=== PATIENT | male | born 1960 | race Caucasian/White ===

== ENCOUNTER 2017-10-30 13:38 | Day surgery (SDC) | payer OTHER ==
[2017-10-30] VITALS (10 sets, daily range): BP systolic 120–132; BP diastolic 70–89
[~2017-10-30] VITALS: Ht 180.3 cm; Wt 104.0 kg
[2017-10-30] MEDS ORDERED: ringers solution, lacted 1,000 ML IV SCH ×2 (13:58→16:47)
[2017-10-30] MEDS ORDERED: acetaminophen 325mg tablet PO ONE (13:58)
[2017-10-30] MEDS ORDERED: famotidine 20mg tablet PO ONE (14:00)
[2017-10-30 15:42] LABS: BASOPHILS % (AUTO) 0.4 % (0-1); EOSINOPHILS # (AUTO) 0.4 X10'3 (0-0.9); EOSINOPHILS % (AUTO) 4.9 % (0-6); HEMATOCRIT 42.4 % (42.0-52.0); HEMOGLOBIN 13.9 g/dl (14.0-17.9); LYMPHOCYTES # (AUTO) 1.8 X10'3 (1.1-4.8); LYMPHOCYTES % (AUTO) 19.9 % (21-51); MEAN CORPUSCULAR HEMOGLOBIN 28.7 PG (27.0-31.0); MEAN CORPUSCULAR HGB CONC 32.7 % (33.0-36.5); MEAN CORPUSCULAR VOLUME 87.8 FL (78-98); MEAN PLATELET VOLUME 8.9 FL (7.4-10.4); MONOCYTES # (AUTO) 0.6 X10'3 (0-0.9); MONOCYTES % (AUTO) 6.9 % (2-12); NEUTROPHILS % (AUTO) 67.9 % (42-75); PLATELET COUNT 202 X10'3 (140-440); RED BLOOD COUNT 4.83 X10'6 (4.70-6.10); RED CELL DISTRIBUTION WIDTH 13.2 % (11.5-14.5); WHITE BLOOD COUNT 8.9 X10'3 (4.5-11.0)
[2017-10-30 16:03] LABS: ALANINE AMINOTRANSFERASE 34 U/L (12-78); ALBUMIN 3.7 G/DL (3.4-5.0); ALBUMIN/GLOBULIN RATIO 1.1 (1.1-1.5); ALKALINE PHOSPHATASE 80 IU/L (46-116); ANION GAP 3 (8-16); ASPARTATE AMINO TRANSFERASE 18 U/L (10-37); BILIRUBIN,TOTAL 0.5 MG/DL (0.1-1.0); BLOOD UREA NITROGEN 14 MG/DL (7-18); BUN/CREATININE RATIO 17.5 (5.4-32.0); CALCIUM 9.2 MG/DL (8.5-10.1); CHLORIDE 105 MMOL/L (99-107); GLUCOSE 102 MG/DL (70-104); POTASSIUM 4.3 MMOL/L (3.5-5.1); SODIUM 140 MMOL/L (135-145); TOTAL CARBON DIOXIDE 31.9 MMOL/L (24-32); eGFR > 90 ML/MIN
[2017-10-30] MEDS ORDERED: ondansetron/PF 4mg/2ml inj ONE (16:12)
[2017-10-30] MEDS ORDERED: sevoflurane 250ml liquid IH ONE (16:12)
[2017-10-30] MEDS ORDERED: dexamethasone sod phosphate 4mg/ml inj. ONE (16:12)
[2017-10-30] MEDS ORDERED: ROPIVAcaine 0.5% (5mg/ml) 30ml vial ONE (16:13)
[2017-10-30] MEDS ORDERED: ketorolac trometh. 30mg/ml inj. ONE (16:19)
[2017-10-30] MEDS ORDERED: propofol inj 20 ML IV ONE (16:19)
[2017-10-30] MEDS ORDERED: LIDOcaine 2% (20mg/ml) 5ml vial ONE (16:19)
[2017-10-30] MEDS ORDERED: ondansetron/PF 4mg/2ml inj IV PRN (16:50)
[2017-10-30] MEDS ORDERED: labetalol 5mg/ml 20ml inj. IV PRN (16:50)
[2017-10-30] MEDS ORDERED: meperidine/PF 25mg/ml syringe IV PRN ×2 (16:50)
[2017-10-30] MEDS ORDERED: hydrALAZINE 20mg/ml inj. IV PRN (16:50)
[2017-10-30] MEDS ORDERED: HYDROcodone/acetaminophen 5mg/325mg tablet PO ONE (17:45)
== END 2017-10-30 18:10 | disposition home or self-care (01) ==
LOC: PAS 13:38
PROVIDERS: ATTEND Orthopaedic Surgery
DX: M24.661 Ankylosis, right knee (principal); Z96.651 Presence of right artificial knee joint; Z88.0 Allergy status to penicillin
CPT/HCPCS: 27570; 36415; 80053; 82948; 85025; 93005; J1100; J1885; J2001; J2175; J2270; J2405; J2704; J2795; J7120

== ENCOUNTER 2019-08-25 05:28 | Inpatient (IN) | payer OTHER ==
[2019-08-18 15:15] LABS: BASOPHILS % (AUTO) 0.6 % (0-1); EOSINOPHILS # (AUTO) 0.4 X10'3 (0-0.9); LYMPHOCYTES # (AUTO) 1.8 X10'3 (1.1-4.8); LYMPHOCYTES % (AUTO) 23.6 % (21-51); MEAN CORPUSCULAR HEMOGLOBIN 29.8 PG (27.0-31.0); MEAN CORPUSCULAR HGB CONC 33.3 g/dL (33.0-36.5); MEAN CORPUSCULAR VOLUME 89.4 FL (78-98); MEAN PLATELET VOLUME 9.2 FL (7.4-10.4); MONOCYTES # (AUTO) 0.6 X10'3 (0-0.9); MONOCYTES % (AUTO) 7.5 % (2-12); NEUTROPHILS # (AUTO) 4.9 X10'3 (1.8-7.7); NEUTROPHILS % (AUTO) 63.3 % (42-75); PRE OP HEMATOCRIT 44.7 % (42.0-52.0); PRE OP HEMOGLOBIN 14.9 g/dL (14.0-17.9); PRE OP PLATELET COUNT 186 X10'3 (140-440); RED CELL DISTRIBUTION WIDTH 13.2 % (11.5-14.5)
[2019-08-18 15:26] LABS: HEMOGLOBIN A1C 6.4 % (4.5-6.2)
[2019-08-18 15:28] LABS: PRE OP PROTIME 10.3 SECONDS (9.0-12.0)
[2019-08-18 15:33] LABS: ALBUMIN 3.9 G/DL (3.4-5.0); ALBUMIN/GLOBULIN RATIO 1.1 (1.1-1.5); ALKALINE PHOSPHATASE 64 IU/L (46-116); BLOOD UREA NITROGEN 17 MG/DL (7-18); BUN/CREATININE RATIO 18.1 (5.4-32.0); CALCIUM 8.9 MG/DL (8.5-10.1); CHLORIDE 106 MMOL/L (99-107); CREATININE 0.94 MG/DL (0.60-1.10); PRE OP ALT 40 U/L (30-65); PRE OP ANION GAP 7 (8-16); PRE OP AST 21 U/L (10-37); PRE OP BILIRUB, TOTAL 0.4 MG/DL (0.0-1.0); PRE OP GLUCOSE 98 MG/DL (70-104); PRE OP POTASSIUM 4.2 MMOL/L (3.4-5.1); PRE OP SODIUM 143 MMOL/L (135-145); TOTAL CARBON DIOXIDE 30.3 MMOL/L (24-32); TOTAL PROTEIN 7.3 G/DL (6.4-8.2); eGFR 83 ML/MIN
[~2019-08-25] VITALS: Ht 180.3 cm; Wt 104.3 kg
[2019-08-25] VITALS (18 sets, daily range): BP systolic 11–123; BP diastolic 50–87
[~2019-08-25 05:28] MED LIST: METF500T PO
[2019-08-25] MEDS ORDERED: clindamycin-Cleocin 900mg/D5W 50 ML IV ONE (05:30)
[2019-08-25] MEDS ORDERED: famotidine 20mg tablet PO ONE (05:30)
[2019-08-25] MEDS ORDERED: tranexamic acid inj. 1,000 MG in normal saline 100 ML IV ONE (05:30)
[2019-08-25] MEDS ORDERED: metoclopramide 5 mg/ml inj IV ONE (05:30)
[2019-08-25] MEDS ORDERED: celeCOXIB 100mg capsule PO ONE (05:30)
[2019-08-25] MEDS ORDERED: acetaminophen 325mg tablet PO ONE (05:30)
[2019-08-25] MEDS ORDERED: ringers solution, lacted 1,000 ML IV ONE (05:30)
[2019-08-25] MEDS ORDERED: gabapentin 300mg capsule PO ONE (05:30)
[2019-08-25] MEDS ORDERED: oxyCODONE SR 10mg (sust. release) tab -2 tabs (20mg) PO ONE (05:30)
[2019-08-25] MEDS ORDERED: vancomycin inj 1,500 MG in normal saline 300ml IV soln IV ONE (05:30)
[2019-08-25] MEDS ORDERED: LIDOcaine 1% (10mg/ml) 2ml vial ONE (06:01)
[2019-08-25] MEDS ORDERED: HYDROmorphone inj. 0.5 MG/0.5 ML DISP.SYRIN IV PRN (06:35)
[2019-08-25] MEDS ORDERED: acetaminophen 325mg tablet PO PRN (06:35)
[2019-08-25] MEDS ORDERED: dextrose 50%-water 50ml dispensing syringe IV PRN ×2 (06:35)
[2019-08-25] MEDS ORDERED: glucagon, human recombinant 1mg kit SUBCUT PRN (06:35)
[2019-08-25] MEDS ORDERED: HYDROmorphone 1 mg/ml syringe IV PRN (06:35)
[2019-08-25] MEDS ORDERED: diphenhydrAMINE 25mg capsule PO PRN ×2 (06:35)
[2019-08-25] MEDS ORDERED: ondansetron/PF 4mg/2ml inj IV PRN ×2 (06:35→09:35)
[2019-08-25] MEDS ORDERED: magnesium hydroxide 30ml (MOM) UD suspension PO PRN (06:35)
[2019-08-25] MEDS ORDERED: oxyCODONE/APAP 10/325mg tablet PO PRN ×2 (06:35)
[2019-08-25] MEDS ORDERED: bisacodyl 10mg suppository rectal RC PRN (06:35)
[2019-08-25] MEDS ORDERED: dextrose ORAL solution 15 GM/59 ML bottle PO PRN ×2 (06:35)
[2019-08-25] MEDS ORDERED: MESSAGE TO PHARMACY PO ONE (06:35)
[2019-08-25] MEDS ORDERED: ROPIVAcaine 0.5% (5mg/ml) 30ml vial ONE ×2 (06:53→09:57)
[2019-08-25] MEDS ORDERED: ketorolac trometh. 30mg/ml inj. ONE (06:53)
[2019-08-25] MEDS ORDERED: cloNIDine hcl/PF 100mcg/ml inj ONE (06:54)
[2019-08-25] MEDS ORDERED: epiNEPHrine 1 mg/ml inj ONE ×2 (06:54→06:55)
[2019-08-25] MEDS ORDERED: vancomycin 1,000mg inj ONE (06:54)
[2019-08-25] MEDS ORDERED: tetracaine 1% (10mg/ml) pres. free inj. ONE (08:21)
[2019-08-25] MEDS ORDERED: MIDAZolam 1mg/ml 10ml vial ONE (08:23)
[2019-08-25] MEDS ORDERED: fentaNYL/PF 50MCG/1 ML 2ML syringe ONE (08:24)
[2019-08-25] MEDS: aspirin 325mg tablet PO SCH (08:30)
[2019-08-25] MEDS ORDERED: ringers solution, lacted 1,000 ML IV SCH (09:32)
[2019-08-25] MEDS ORDERED: morphine 4 MG/ML inj SYRINge IV PRN ×2 (09:35)
[2019-08-25] MEDS ORDERED: proCHLORperazine 10 MG/2 ml inj IV PRN (09:35)
[2019-08-25] MEDS ORDERED: meperidine/PF 25mg/ml syringe IV PRN ×3 (09:35)
--- NOTE | 2019-08-25 10:40 | NUR ---
Received from OR via BED , accompanied by Anesthesiologist DR LIN and report given by Anesthesiolgist. PATIENT WAKING UP, DENIES PAIN, V/S WNL, NEUROVASCULAR CHECKS INTACT, 18G PIV RUE , GERBER DRESSING TO LEFT KNEE CDI W/ COLD POWDER PACK AND IMMOBILIZER BRACE W/ SCD ON AND ON QUE PUMP TO LEFT KNEE. F/C DRAINING CLEAR YELLOW URINE. SENSATION T-10.
[2019-08-25] MEDS: ROPIVAcaine 0.2%/PF PAIN PUMP 550 ML ADDCANAL SCH ×2 (11:15→20:30)
--- NOTE | 2019-08-25 11:40 | NUR ---
PATIENT WAKING UP, DENIES PAIN, V/S WNL, NEUROVASCULAR CHECKS INTACT, 18G PIV RUE , GERBER DRESSING TO LEFT KNEE CDI W/ COLD POWDER PACK AND IMMOBILIZER BRACE W/ SCD ON AND ON QUE PUMP TO LEFT KNEE. F/C DRAINING CLEAR YELLOW URINE. SENSATION T-10. . PATIENT TAKEN TO WITH ALL BELONGINGS AND HOOKED UP TO MONITORS IN ROOM AND REPORT GIVEN TO CAMPUS MANAGER WHO HAS TAKEN OVER PATIENT CARE.
[2019-08-25] MEDS: ascorbic acid 500mg tablet PO SCH ×2 (12:26→20:40)
[2019-08-25] MEDS: gabapentin 300mg capsule PO SCH ×3 (12:26→20:40)
[2019-08-25] MEDS: multivitamins, therapeutics tablet PO SCH (12:26)
[2019-08-25] MEDS: potassium cl 20mEq in 1/2 NS 1,000 ML IV SCH ×2 (12:30→16:06)
[2019-08-25] MEDS ORDERED: tranexamic acid inj. 1,000 MG in normal saline 100ml IV soln 100 ML IV ONE (15:30)
[2019-08-25] MEDS: cefazolin/dext.iso 2gm/50ml 50 ML IV SCH ×2 (16:06→23:47)
--- NOTE | 2019-08-25 18:14 | NUR ---
Patient in room [facility]TH[facility] 4024. I have received report from ARAVIND RICKS and had the opportunity to ask questions and assume patient care.
--- NOTE | 2019-08-25 20:30 | NUR ---
DECREASED ON Q PUMP FROM 12CC/HR TO 10CC/HR
[2019-08-25] MEDS: sennosides 8.6mg tablet PO SCH (20:41)
--- NOTE | 2019-08-25 22:13 | NUR ---
LEFT A TELEPHONE MESSAGE AT TO CLARIFY CPM ORDER.
[2019-08-26 02:00] VITALS: BP 100/62
[2019-08-26] MEDS: potassium cl 20mEq in 1/2 NS 1,000 ML IV SCH ×4 (02:20→22:32)
[2019-08-26] MEDS: ROPIVAcaine 0.2%/PF PAIN PUMP 550 ML ADDCANAL SCH (03:35)
[2019-08-26] MEDS ORDERED: HYDROcodone/acetaminophen 10/325mg tab PO PRN (05:20)
[2019-08-26] MEDS: HYDROcodone/acetaminophen 10/325mg tab PO PRN ×3 (05:30→15:15)
--- NOTE | 2019-08-26 06:07 | NUR ---
Problems reprioritized. Patient report given, questions answered & plan of care reviewed with ARAVIND GOODMAN.
[2019-08-26 06:08] LABS: ANION GAP 5 (8-16); CHLORIDE 106 MMOL/L (99-107); POTASSIUM 4.4 MMOL/L (3.5-5.1); SODIUM 139 MMOL/L (135-145); TOTAL CARBON DIOXIDE 28.3 MMOL/L (24-32)
[2019-08-26 06:24] VITALS: BP 111/43
--- NOTE | 2019-08-26 06:28 | NUR ---
Problems reprioritized. Patient report given, questions answered & plan of care reviewed with ARAVIND VIEYRA.
--- NOTE | 2019-08-26 06:35 | NUR ---
Patient in room [facility]TH[facility] 4024. I have received report from Caity NAZARIO and had the opportunity to ask questions and assume patient care.
[2019-08-26 06:48] LABS: BASOPHILS % (AUTO) 0.4 % (0-1); EOSINOPHILS # (AUTO) 0.4 X10'3 (0-0.9); EOSINOPHILS % (AUTO) 3.7 % (0-6); HEMATOCRIT 38.8 % (42.0-52.0); HEMOGLOBIN 12.9 g/dl (14.0-17.9); LYMPHOCYTES # (AUTO) 2.1 X10'3 (1.1-4.8); LYMPHOCYTES % (AUTO) 21.3 % (21-51); MEAN CORPUSCULAR HEMOGLOBIN 29.8 PG (27.0-31.0); MEAN CORPUSCULAR HGB CONC 33.4 g/dL (33.0-36.5); MEAN CORPUSCULAR VOLUME 89.2 FL (78-98); MEAN PLATELET VOLUME 9.4 FL (7.4-10.4); MONOCYTES # (AUTO) 0.8 X10'3 (0-0.9); MONOCYTES % (AUTO) 8.7 % (2-12); NEUTROPHILS # (AUTO) 6.4 X10'3 (1.8-7.7); NEUTROPHILS % (AUTO) 65.9 % (42-75); PLATELET COUNT 173 X10'3 (140-440); RED BLOOD COUNT 4.35 X10'6 (4.70-6.10); RED CELL DISTRIBUTION WIDTH 13.1 % (11.5-14.5); WHITE BLOOD COUNT 9.7 X10'3 (4.5-11.0)
[2019-08-26] MEDS ORDERED: scopolamine 1.5mg patch.TD72 TD SCH (07:30)
[2019-08-26] MEDS: ascorbic acid 500mg tablet PO SCH ×2 (08:23→20:38)
[2019-08-26] MEDS: multivitamins, therapeutics tablet PO SCH (08:23)
[2019-08-26] MEDS: aspirin 325mg tablet PO SCH (08:23)
[2019-08-26] MEDS: gabapentin 300mg capsule PO SCH ×3 (08:23→20:38)
[2019-08-26] MEDS: insulin Lispro (HumaLOG) vial - multi-dose SQ SCH ×3 (08:27→18:43)
[2019-08-26 10:00] VITALS: BP 113/37
[2019-08-26 14:00] VITALS: BP 111/68
--- NOTE | 2019-08-26 16:13 | NUR ---
Joint replacement: Pt s/p left knee arthroplasty seen at bedside provided with written and verbal protein education and RD contact information. Pt endorses a good appetite and reports he ate about 50% at lunch today d/t not liking the food. Pt agrees to peanut butter with celery at dinner tonight and lunch tomorrow and requests no turkey or chicken, d/w dietary. Pt denies any food allergies or difficulty chewing/swallowing. Pt reports no BM since 08/24 however denies any nutrition intervention at this time. Will continue to follow. Addendum: 08/26/19 at [address] Amended: Links added.
[2019-08-26 18:00] VITALS: BP 102/61
--- NOTE | 2019-08-26 18:04 | NUR ---
Patient report given to Kellen Bustillo RN
[2019-08-26] MEDS: sennosides 8.6mg tablet PO SCH (20:38)
[2019-08-26] MEDS: celeCOXIB 100mg capsule PO SCH (20:38)
[2019-08-26 22:00] VITALS: BP 114/62
[2019-08-27 05:55] LABS: BASOPHILS % (AUTO) 0.2 % (0-1); EOSINOPHILS # (AUTO) 0.3 X10'3 (0-0.9); EOSINOPHILS % (AUTO) 2.7 % (0-6); HEMATOCRIT 38.2 % (42.0-52.0); HEMOGLOBIN 12.9 g/dl (14.0-17.9); LYMPHOCYTES # (AUTO) 1.2 X10'3 (1.1-4.8); LYMPHOCYTES % (AUTO) 12.3 % (21-51); MEAN CORPUSCULAR HEMOGLOBIN 30.1 PG (27.0-31.0); MEAN CORPUSCULAR HGB CONC 33.7 g/dL (33.0-36.5); MEAN CORPUSCULAR VOLUME 89.2 FL (78-98); MEAN PLATELET VOLUME 9.1 FL (7.4-10.4); MONOCYTES # (AUTO) 0.9 X10'3 (0-0.9); MONOCYTES % (AUTO) 9.5 % (2-12); NEUTROPHILS # (AUTO) 7.3 X10'3 (1.8-7.7); NEUTROPHILS % (AUTO) 75.3 % (42-75); PLATELET COUNT 156 X10'3 (140-440); RED BLOOD COUNT 4.28 X10'6 (4.70-6.10); RED CELL DISTRIBUTION WIDTH 13.3 % (11.5-14.5); WHITE BLOOD COUNT 9.8 X10'3 (4.5-11.0)
[2019-08-27 06:00] VITALS: BP 130/74
--- NOTE | 2019-08-27 06:21 | NUR ---
Report given to Scooter NAZARIO.
--- NOTE | 2019-08-27 06:28 | NUR ---
Patient in room [facility]TH[facility] 4024. I have received report from Kellen NAZARIO and had the opportunity to ask questions and assume patient care.
[2019-08-27] MEDS: celeCOXIB 100mg capsule PO SCH (07:47)
[2019-08-27] MEDS: multivitamins, therapeutics tablet PO SCH (07:48)
[2019-08-27] MEDS: gabapentin 300mg capsule PO SCH (07:48)
[2019-08-27] MEDS: ascorbic acid 500mg tablet PO SCH (07:48)
[2019-08-27] MEDS: aspirin 325mg tablet PO SCH (07:48)
[2019-08-27] MEDS ORDERED: ASPI-1 PO (08:00)
[2019-08-27] MEDS: insulin Lispro (HumaLOG) vial - multi-dose SQ SCH (08:23)
[2019-08-27] MEDS: ROPIVAcaine 0.2%/PF PAIN PUMP 550 ML ADDCANAL SCH (08:53)
[2019-08-27 10:00] VITALS: BP 117/66
[2019-08-27] MEDS: HYDROcodone/acetaminophen 10/325mg tab PO PRN (11:42)
--- NOTE | 2019-08-27 11:45 | NUR ---
Student Medication Administration: For this medication-pass time frame, all medication were reviewed, dispensed, administered and documented per hospital policy by Katie Charles. Student documentation: I have reviewed all interventions, assessments performed and documented by Katie Charles.
--- NOTE | 2019-08-27 11:50 | NUR ---
safe DC with [employer]. All personal items with patient
== END 2019-08-27 11:45 | disposition home or self-care (01) | DRG 470 ==
LOC: PAS IN 05:28 → EDSTATUS 08:45 → ORTHO 4S 12:00
PROVIDERS: ADMIT Orthopaedic Surgery; ATTEND Orthopaedic Surgery
PROC: 3E0T3BZ Introduction of Anesthetic Agent into Peripheral Nerves and Plexi, Percutaneous Approach (ICD-10-PCS; 2019-08-25)
PROC: 0SRD069 Replacement of Left Knee Joint with Oxidized Zirconium on Polyethylene Synthetic Substitute, Cemented, Open Approach (ICD-10-PCS; principal; 2019-08-25 08:18)
PROC: 5A09357 Assistance with Respiratory Ventilation, Less than 24 Consecutive Hours, Continuous Positive Airway Pressure (ICD-10-PCS; 2019-08-26)
DX: M17.12 Unilateral primary osteoarthritis, left knee (principal); D62 Acute posthemorrhagic anemia; E11.9 Type 2 diabetes mellitus without complications; G47.30 Sleep apnea, unspecified; Z88.0 Allergy status to penicillin; Z79.84 Long term (current) use of oral hypoglycemic drugs
CPT/HCPCS: Z7506; Z7508; 36415; 71046; 73560; 80051; 80053; 82948; 83036; 85025; 85610; 85730; 86885; 86900; 86901; 87081; 93005; 97110; 97116; 97161; 97530; A4215; A6454; A7000; C1713; C1758; C1776; G0378; J0171; J0735; J1815; J1885; J2001; J2250; J2405; J2765; J2795; J3010; J3370; J3480; J3490; J7120